=== PATIENT | male | born 1970 | race Caucasian/White ===

== ENCOUNTER → 2016-09-26 | Outpatient (CLI) | payer BC ==
--- NOTE | 2016-09-26 14:26 | US ---
EXAMINATION TYPE: US kidneys/renal and bladder DATE OF EXAM: 09/26/2016 1:42 PM COMPARISON: Prior renal ultrasound October 16, 2015 CLINICAL HISTORY: Recurrent UTI N31.9. Neurogenic bladder EXAM MEASUREMENTS: Right Kidney: 10.4 x 3.9 x 4.6 cm Left Kidney: 10.9 x 4.3 x 5.1 cm TECHNOLOGIST IMPRESSION: Right Kidney: no evidence of hydronephrosis or mass Left Kidney: no evidence of hydronephrosis or mass Bladder: Bilateral Jets seen: yes There is no evidence for hydronephrosis at this point in time. No nephrolithiasis is seen. No julian s are identified. The urinary bladder is anechoic. Bilateral ureteral jets are seen. There is anter ior diverticulum or outpouching identified on today's study IMPRESSION: Prominent anterior bladder diverticulum otherwise unremarkable study.
== END | disposition home or self-care (01) ==
LOC: RADUSWWP 13:40
PROVIDERS: ATTEND Urology
DX: N32.3 Diverticulum of bladder (principal)
CPT/HCPCS: 76770

== ENCOUNTER → 2018-02-24 | Outpatient (CLI) | payer BC ==
[~2018-02-24] MED LIST: REGADENOSON 0.4 MG/5 ML SYRINGE IV ONE
--- NOTE | 2018-02-24 12:48 | NM ---
EXAMINATION TYPE: NM stress lexiscan cardiolite DATE OF EXAM: 02/24/2018 COMPARISON: NONE HISTORY: Abnormal EKG, palpitations TECHNIQUE: After the intravenous administration of 10.3 mCi Tc 99m Sestamibi - Cardiolite resting SP ECT images acquired 60 minutes post injection. The patient received 0.4mg Lexiscan, 24.2 mCi Tc 99m Sestamibi - Stress images obtained [address] injection FINDINGS: Review of stress and rest SPECT images demonstrates no distinct perfusion abnormality. Gated analysi s shows questionable paradoxical apical wall motion with an estimated left ventricular ejection fract ion of 68 %. IMPRESSION: No scintigraphic evidence for reversible ischemia. Consider echocardiographic correlation for elevate d ejection fraction
--- NOTE | 2018-02-24 20:37 | EST ---
EXERCISE STRESS LEXISCAN CARDIOLITE STRESS TEST: AGE: 47 SEX: Male. HT: 69" WT: 150 pounds PROTOCOL: Lexiscan Cardiolite STAGE: DURATION OF EXERCISE: HEART RATE REST: 44 BLOOD PRESSURE REST: 125/78 MAXIMUM HEART RATE ACHIEVED: 89 MAXIMUM BLOOD PRESSURE: 125/78 85% MPHR: 145 100% MPHR: 171 METS: INDICATIONS: Palpitations, abnormal EKG. CLINICAL INFORMATION: Baseline heart rate 44 beats per minute. Baseline blood pressure 125/78 mmHg. Baseline 12-lead ECG shows sinus bradycardia with non-specific ST-T abnormalities. Patient received Lexiscan infusion per protocol. No symptoms were noted. Heart rate was in the 70s and 80s. Blood pressure in the mid 90s noted. No ECG evidence for ischemia. Nuclear portion will be reported separately. MMODL / IJN: [id number] /
== END | disposition home or self-care (01) ==
LOC: RADNMMAIN 08:52
PROVIDERS: ATTEND Family Medicine
DX: R00.1 Bradycardia, unspecified (principal); R94.31 Abnormal electrocardiogram [ECG] [EKG]; Z88.2 Allergy status to sulfonamides
CPT/HCPCS: 93017; 78452; A9500; J2785

== ENCOUNTER → 2018-03-12 | Outpatient (CLI) | payer BC ==
--- NOTE | 2018-03-12 13:24 | US ---
EXAMINATION TYPE: US kidneys/renal and bladder DATE OF EXAM: 03/12/2018 COMPARISON: US's CLINICAL HISTORY: G82.50 QUADRIPELIGIA. neurogenic bladder EXAM MEASUREMENTS: Right Kidney: 9.6 x 3.9 x 5.5 cm Left Kidney: 10.3 x 4.2 x 4.5 cm Right Kidney: No hydronephrosis or masses seen Left Kidney: No hydronephrosis or masses seen Bladder: wnl Bilateral Jets seen: Yes There is no evidence for hydronephrosis at this point in time. No nephrolithiasis is seen. No julian s are identified. The urinary bladder is anechoic. Bilateral ureteral jets are seen. IMPRESSION: No distinct abnormality.
--- NOTE | 2018-03-13 10:38 | ECHOF ---
Referral Reason:G82.50 Quadriplegia unspecified, R93.1 Abnormal... MEASUREMENTS -------- HEIGHT: 175.3 cm WEIGHT: 70.3 kg BP: RVIDd: 2.1 cm (< 3.3) IVSd: 1.1 cm (0.6 - 1.1) LVIDd: 3.5 cm (3.9 - 5.3) LVPWd: 1.3 cm (0.6 - 1.1) IVSs: 1.5 cm LVIDs: 2.6 cm LVPWs: 1.6 cm IVSd: 2.5 cm (0.6 - 1.1) Ao Diam: 3.0 cm (2.0 - 3.7) AV Cusp: 2.6 cm (1.5 - 2.6) LA Diam: 1.6 cm (2.7 - 3.8) MV EXCURSION: 19.761 mm (> 18.000) MV EF SLOPE: 83 mm/s (70 - 150) EPSS: 0.2 cm MV E Maikel: 0.52 m/s MV DecT: 327 ms MV A Maikel: 0.60 m/s MV E/A Ratio: 0.86 RAP: 5.00 mmHg RVSP: 11.59 mmHg FINDINGS -------- Sinus rhythm. This was a technically good study. The left ventricular size is normal. There is mild concentric left ventricular hypertrophy. Overa ll left ventricular systolic function is normal with, an EF between 60 - 65 %. The right ventricle is normal in size and function. The left atrium is normal in size. The right atrium is normal in size. The aortic valve is trileaflet, and appears structurally normal. No aortic stenosis or regurgitation. There is trace mitral regurgitation. Trace tricuspid regurgitation present. The right ventricular systolic pressure, as measured by Dopp ler, is 11.59mmHg. Pulmonic valve appears structurally normal. CONCLUSIONS -------- 1. Sinus rhythm. 2. This was a technically good study. 3. The left ventricular size is normal. 4. There is mild concentric left ventricular hypertrophy. 5. Overall left ventricular systolic function is normal with, an EF between 60 - 65 %. 6. The right ventricle is normal in size and function. 7. The left atrium is normal in size. 8. The right atrium is normal in size. 9. The aortic valve is trileaflet, and appears structurally normal. No aortic stenosis or regurgitati on. 10. There is trace mitral regurgitation. 11. Trace tricuspid regurgitation present. 12. The right ventricular systolic pressure, as measured by Doppler, is 11.59mmHg. 13. Pulmonic valve appears structurally normal. [employer] SUPERVISOR: Zenia Taylor RDCS
== END | disposition home or self-care (01) ==
LOC: RADUSWWP 12:44
PROVIDERS: ATTEND Family Medicine
DX: G82.50 Quadriplegia, unspecified (principal); R93.1 Abnormal findings on diagnostic imaging of heart and coronary circulation; I08.1 Rheumatic disorders of both mitral and tricuspid valves
CPT/HCPCS: 76770; 93306

== ENCOUNTER → 2019-12-06 | Outpatient (CLI) | payer BC ==
--- NOTE | 2019-12-06 13:11 | XR ---
EXAMINATION TYPE: XR KUB DATE OF EXAM: 12/06/2019 COMPARISON: None INDICATION: Recent UTI and history of stones TECHNIQUE: Single view abdomen lateral projection FINDINGS: Normal colonic bowel gas is within the redundant colon. There is mild fecal retention diffusely. Psoas margins are normal. No organomegaly is present. No suspicious calcifications are identified. Punctate calcifications in the left hemipelvis may be a phlebolith or distal ureteral stone cannot be entirely excluded. This measures 0.4 cm. IMPRESSION: 1. 0.4 cm calcification in left hemipelvis more likely is a phlebolith. Distal ureteral stone should be considered. 2. Mild fecal retention.
== END | disposition home or self-care (01) ==
LOC: RADXRMAIN 11:44
PROVIDERS: ATTEND Urology
DX: N20.0 Calculus of kidney (principal); K59.00 Constipation, unspecified
CPT/HCPCS: 74018

== ENCOUNTER → 2023-08-27 | Outpatient (CLI) | payer BC ==
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
== END | disposition home or self-care (01) ==
LOC: RADMRIMAIN 15:47
PROVIDERS: ATTEND Orthopaedic Surgery Orthopaedic Surgery of the Spine
DX: M54.12 Radiculopathy, cervical region (principal); M77.12 Lateral epicondylitis, left elbow; M79.12 Myalgia of auxiliary muscles, head and neck; M75.42 Impingement syndrome of left shoulder; R29.2 Abnormal reflex; Z98.1 Arthrodesis status
CPT/HCPCS: 72141

== ENCOUNTER → 2023-09-30 | Outpatient (CLI) | payer BC ==
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
== END | disposition home or self-care (01) ==
LOC: RADUSWWP 10:24
PROVIDERS: ATTEND Physical Medicine & Rehabilitation
DX: S14.106S Unspecified injury at C6 level of cervical spinal cord, sequela (principal); M67.814 Other specified disorders of tendon, left shoulder; M75.122 Complete rotator cuff tear or rupture of left shoulder, not specified as traumatic; M77.8 Other enthesopathies, not elsewhere classified; M77.12 Lateral epicondylitis, left elbow

== ENCOUNTER 2024-04-01 17:00 | Emergency (ER) | payer BC ==
[2024-04-01] MEDS ORDERED: ACETAMINOPHEN TAB 500 MG TAB ONE (18:10)
[2024-04-01] MEDS ORDERED: IBUPROFEN 600 MG TAB PO ONE (18:10)
[2024-04-01] MEDS ORDERED: SODIUM CHLORIDE 0.9% 1,000 ML BAG ONE (18:26)
--- NOTE | 2024-05-06 09:52 | CT ---
EXAM: CT Abdomen and Pelvis With Intravenous Contrast CLINICAL HISTORY: Abdominal distention without pain TECHNIQUE: Axial computed tomography images of the abdomen and pelvis with intravenous contrast. CTDI is 13.8 mGy and DLP is 713.9 mGy-cm. This CT exam was performed using one or more of the following dose reduction techniques: automated exposure control, adjustment of the mA and/or kV according to patient size, and/or use of iterative reconstruction technique. COMPARISON: No relevant prior studies available. FINDINGS: Lung bases:Unremarkable. No mass. No consolidation. ABDOMEN: Liver:Unremarkable. No mass. Gallbladder and bile ducts:Unremarkable. No calcified stones. No ductal dilation. Pancreas:Unremarkable. No mass. No ductal dilation. Spleen:Unremarkable. No splenomegaly. Adrenals:Unremarkable. No mass. Kidneys and ureters:Nonobstructing 3 mm LEFT lower pole renal stone. Stomach and bowel: Mild fecal retention, correlate for constipation. No obstruction. No mucosal thickening. PELVIS: Appendix:No findings to suggest acute appendicitis. Bladder:Unremarkable. No mass. Reproductive:Unremarkable as visualized. ABDOMEN and PELVIS: Intraperitoneal space:Unremarkable. No free air. No significant fluid collection. Bones/joints:No acute fracture. No dislocation. Soft tissues:Unremarkable. Vasculature:Unremarkable. No abdominal aortic aneurysm. Lymph nodes:Unremarkable. No enlarged lymph nodes. IMPRESSION: 1. Nonobstructing 3 mm LEFT lower pole renal stone. 2. Mild fecal retention, correlate for constipation. Radiologist: Emigdio Mtz MD Electronically Signed: 04/02/24 01:49 Study ready at 23:15 and initial results transmitted at 01:49 Results also transmitted to Film Room, Film Room @ [phone] (Fax) [facility]
== END 2024-04-02 04:15 | disposition home or self-care (01) ==
LOC: EC 17:00
DX: R50.9 Fever, unspecified (principal)
CPT/HCPCS: 74177; 87040; 87086; 93005; 99284